=== PATIENT | female | born 1985 | race Hispanic/Latino ===

== ENCOUNTER 2017-06-19 18:36 | Inpatient (IN) | payer BC ==
[2017-06-19 19:25] LABS: BASO # 0.03 K/mm3 (0.0-2.0); BASO % 0.4 % (0.0-3.0); EOS # 0.1 (0.0-0.7); GRAN # 4.77 (1.4-6.5); GRAN % 67.3 % (50.0-68.0); HEMOGLOBIN 14.4 gm/dL (12.0-16.0); LYMPH # 1.7 (1.2-3.4); LYMPH % 24.2 % (22.0-35.0); MEAN CORPUSCULAR HEMOGLOBIN 32.6 pg (25.0-35.0); MEAN CORPUSCULAR HGB CONC 34.3 g/dl (31.0-37.0); MEAN PLATELET VOLUME 10.2 fl (7.0-11.0); MONO # 0.5 (0.1-0.6); MONO % 7.1 % (1.0-6.0); PLATELET COUNT 212 10^3/uL (120.0-450.0); RBC 4.42 10^6/uL (3.5-6.1); RED CELL DISTRIBUTION WIDTH 12.6 % (11.5-14.5); WHITE BLOOD COUNT 7.1 10^3/ul (4.5-11.0)
[2017-06-19] MEDS ORDERED: Oxycodone/Acetaminophen 5/325 mg Tab PO STA (19:25)
[2017-06-19 19:32] LABS: INR 1.04 (0.93-1.08); PARTIAL THROMBOPLASTIN TIME 25.1 Seconds (23.7-30.8); PROTHROMBIN TIME 11.2 Seconds (9.9-11.8)
[2017-06-19 19:33] LABS: ALB/GLOB RATIO 1.2 (1.1-1.8); ALBUMIN 4.6 g/dL (3.0-4.8); ALT/SGPT 38 U/L (7-56); AST/SGOT 38 U/L (15-39); BLOOD UREA NITROGEN 12 mg/dL (7-21); CALCIUM 9.6 mg/dL (8.4-10.5); GFR AFRICAN-AMERICAN > 60; GFR NON-AFRICAN AMERICAN > 60
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
[2017-06-19 20:24] VITALS: BMI 21.7
[2017-06-19] MEDS: Heparin 25,000units in D5W 25,000 UNITS/250 ML BAG IV PRN (20:38)
[2017-06-19] MEDS ORDERED: Pneumococcal 23-Valent Vaccine IM ONE (22:01)
[2017-06-20] MEDS ORDERED: Oxycodone/Acetaminophen 5/325 mg Tab PO STA (02:54)
[2017-06-20] MEDS ORDERED: Nitroglycerin 50mg in D5W 50 MG/250 ML BOTTLE IV ONE (11:48)
[2017-06-20] MEDS ORDERED: Iodixanol 320 MG/ML 100 ML BOTTLE IV ONE (11:48)
[2017-06-20] MEDS ORDERED: Lidocaine 2% Inj (20ml) ONE (11:48)
[2017-06-20] MEDS ORDERED: Iodixanol 320 MG/ML 200 ML BOTTLE IV ONE (11:48)
[2017-06-20] MEDS ORDERED: Midazolam 2 MG/2 ML VIAL ONE ×2 (12:13→13:12)
[2017-06-20] MEDS ORDERED: Iohexol 300 100 ML IJ ONE (12:30)
[2017-06-20] MEDS ORDERED: Heparin 25,000units in D5W 25,000 UNITS/250 ML BAG IV ONE (13:12)
[2017-06-20] MEDS: HYDROmorphone 2 mg/ml ISec IVP PRN ×2 (14:48→18:48)
--- NOTE | 2017-06-20 15:22 | HP ---
DATE: 06/20/2017 HISTORY OF PRESENT ILLNESS: This 31-year-old female was examined at her bedside. Her case was reviewed in detail with herself, her family, Dr. John Aldridge from Interventional Radiology and Dr. Caleb Wilson from Hematology/Oncology. This 31-year-old female presented to the [facility] last evening complaining of a left arm pain and swelling after returning from an airplane ride and vacation in [facility] . The patient states that the pain started on Friday. The arm became more swollen by and she presented to the ER for further evaluation of the above where venous Doppler ultrasound confirmed a deep venous thrombosis of her left axillary and subclavian veins. The patient was admitted for further evaluation of the above and started on IV heparin and consultations with Hematology and Intervention Radiology were placed. PAST MEDICAL HISTORY: Relatively unremarkable. MEDICATIONS: She states she takes no medication. ALLERGIES: NO KNOWN ALLERGIES TO MEDICATION. PAST SURGICAL HISTORY: She is status post appendectomy and childbirth. SOCIAL HISTORY: She is a social drinker. Occasional smoker. Denies any IV drug misuse and states she has had no DVTs in her past. On questioning her, there was a family history of diabetes, hypertension and atherosclerotic heart disease. REVIEW OF SYSTEMS: Head review, no headache or seizure. Eye review, no change in visual acuity. Ear review, no hearing loss. Throat review, no swallowing difficulty. Neck review, no stiffness. Cardiac review; no knowledge of hypertension. Pulmonary: No cough, no hemoptysis, no shortness of breath. GI: No hematemesis, no melena, no GERD. : No dysuria. Skin without rash. Neurological: No knowledge of TIA or stroke. Vascular: No claudication. Psychological: History of anxiety. PHYSICAL EXAMINATION VITAL SIGNS: Temperature 97.9, respirations 18, pulse 60, blood pressure 112/72 and pulse ox 99% on room air. playground monitor shows NSR. HEENT: Head is normocephalic, atraumatic. Eyes showed no icterus. Ears clear. Throat non-injected. NECK: Supple. HEART: Regular S1, S2. No pathological rubs, murmurs or gallops. LUNGS: Clear to auscultation. ABDOMEN: Soft and nontender. No palpable organomegaly. No rebound. No guarding. No tenderness. EXTREMITIES: No clubbing, cyanosis or edema of her legs. Her left upper arm showed swelling and there was an excellent brachial and radial pulse. There was normal capillary refill. NEURO; Motor strength, neurologically was 5/5 throughout. SENSORY: Intact. PSYCHOLOGICAL: Alert, oriented x3. VASCULAR: Legs warm to touch. LABORATORY DATA: White count 7100, hemoglobin 14.4, hematocrit 42.0, platelets 212,000. PTT 59.5, sodium 139, K 3.9, chloride 100, bicarbonate 31, BUN 12, creatinine 0.7. Random blood sugar 96. All liver function testing was normal including bilirubin 0.8, AST 38, ALT 38, alkaline phosphatase 51 and a venous Doppler of her left upper extremity revealed deep venous thrombosis involving her axillary and subclavian veins. IMPRESSION AND PLAN: A 31-year-old female with left upper extremity DVT, rule out mechanical, rule out hypercoagulable state; as discussed with Dr. John Aldridge, rule out thoracic outlet obstruction. The patient has been seen by Dr. Caleb Wilson who has outlined coagulopathy workup including lupus anticoagulant, factor V Leiden mutation levels, antiphospholipid antibody panel, protein C, protein S and antithrombin 3 levels. The patient remains on IV heparin protocol. She has been ordered to receive Tylenol for mild pain and Percocet for severe pain. She will have a stat urine test and if negative, we will proceed with a chest x-ray, a CT of her chest without and with contrast and Dr. Aldridge is scheduling a left upper extremity venogram with thrombolysis for later today as well. The patient will remain n.p.o. at present. She is ordered to have physical and occupational therapy. Based on her diagnostic testing and clinical response, Dr. Aldridge will be determining the timing of conversion of IV heparin to oral anticoagulation, which has been discussed with Dr. Wilson. Ultimate plan will be for stabilizing this patient with a therapeutic IV heparin. She will then follow up with Dr. Wilson in his office regarding the resulting of his coagulopathy workup and the patient will be ruled out for a thoracic outlet obstruction by Dr. Aldridge with his venogram studies as ordered. All this has been discussed in detail with the patient and her family at the bedside. Her prognosis remains stable at present. Yvonne Dee MD [facility] # [id number] MTDD
--- NOTE | 2017-06-20 16:22 | CARD ---
APPROVED REPORT EKG Measurement Heart [id number] <Conclusion> Normal sinus rhythm Normal ECG
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
--- NOTE | 2017-06-20 18:25 | PCM.SEPTIC ---
Sepsis Progress Note - Non Invasive Reassessment Vital Sign (Latest): Temp Pulse Resp BP Pulse Ox 98.3 F 56 L 22 122/64 99 06/20/17 16:15 06/20/17 17:36 06/20/17 17:36 06/20/17 17:36 06/20/17 09:00
--- NOTE | 2017-06-20 20:39 | VASCULAR ---
PROCEDURE: 1. Left upper extremity venogram 2. SVC gram 3. Catheter directed thrombolysis of the left subclavian and axillary veins HISTORY: Acute thrombosis left subclavian and axillary veins with pain and swelling. 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 TECHNIQUE: The relative risks and indications of the procedure were explained to the patient and consent obtained. The patient was hydrated prior to the procedure and the appropriate labs drawn. The patient was placed supine on the arteriogram table and the left arm prepped and draped in usual sterile fashion. A tourniquet was applied left axilla. Conscious sedation monitoring were provided throughout the procedure by a nurse. Under direct ultrasound guidance, the left basilic vein was punctured above the elbow with a micropuncture set. 5 Panamanian catheter was placed. A limited left upper extremity venogram was performed. This revealed thrombus in the left subclavian axillary veins. The 5 Panamanian catheter was advanced the 1st rib and additional imaging obtained. This revealed a severe focal stenosis of the left subclavian vein at the medial 1st rib, consistent with thoracic outlet compression. The left innominate vein and superior vena cava are widely patent and normal. Exchange is made for support wire. A 6 Panamanian sheath was placed at the puncture site. A 5 Panamanian EKOS catheter with a 12 cm infusion length was positioned in the left axillary and subclavian veins. TPA was initiated at 1 milligram/hour. The infusion system was secured and the patient transferred to the ICU. FINDINGS: Occlusive thrombus is noted in the left subclavian and axillary veins. There is a focal stenosis at the medial aspect of the left 1st rib, consistent with thoracic outlet compression. The left innominate vein and SVC are widely patent. IMPRESSION: 1.Left subclavian and axillary venous thrombosis likely related to thoracic outlet syndrome 2. Successful placement of a 12 cm EKOS infusion catheter for venous thrombolysis
[2017-06-21] MEDS: HYDROmorphone 2 mg/ml ISec IVP PRN ×4 (00:10→18:28)
[2017-06-21] MEDS: ceFAZolin 1 gm in NS 1 GM/100 ML BAG IVPB SCH (09:41)
[2017-06-21 10:01] LABS: HEMOGLOBIN 13.1 gm/dL (12.0-16.0)
--- NOTE | 2017-06-21 11:25 | PN ---
DATE: 06/21/2017 SUBJECTIVE: The patient is resting in bed, awake and alert, continues to complain of occasional pain in the left arm. The arm is swollen and she still has some paresthesia in her hand and fingers. No complaints of shortness of breath. No cough. No wheeze. No chest congestion. No chest pain. No abdominal pain. No diarrhea. The patient continues to get IV tPA as well as IV heparin and continues to have close monitoring. PHYSICAL EXAMINATION: Note that; VITAL SIGNS: Her temperature is 98.4, her pulse is 64, respirations are 20, blood pressure is 122/86 and O2 saturation on 2 liters with nasal cannula is 99%. HEENT: Head is atraumatic and normocephalic. Eyes reactive to light. Ear, nose and throat seem to be within normal limits. NECK: Supple. No JVD. No thyroid enlargement. No lymph nodes. HEART: Regular rate and rhythm. Normal S1, S2. LUNGS: Reveal good breath sounds bilaterally. ABDOMEN: Soft and nontender. Normal bowel sounds. No organomegaly noted. GENITALIA AND RECTAL: Deferred. MUSCULOSKELETAL: No joint deformities. EXTREMITIES: Reveal swelling and tenderness in the left arm up to the shoulder. The patient continues to have good pulses in the left arm. NEUROLOGICAL: She seems to be grossly intact. LABORATORY DATA: Her white count is 7.1, hemoglobin is 14.4, hematocrit is 42.0 with platelets of 212,000. The patient's last PTT is 25.4 and chemistries reveal a sodium is 139, potassium 3.9, chloride 100, CO2 of 31 with a BUN of 12, creatinine of 0.7, and a glucose of 96. IMPRESSION: The patient has a subclavian and axillary deep vein thrombosis and noted left upper extremity venous thrombosis. This is with thoracic outlet obstruction. Possible hypercoagulable state. PLAN: We will continue to monitor closely in the ICU. The patient is getting continuous IV tPA and IV heparin. We will continue to give Dilaudid for pain and the patient is on Cefazol IV as antibiotics and Ativan for anxiety. She will continue to get Protonix, and we will follow closely and treat aggressively along with the other consultants and the primary care doctor. Robert Starks MD
[2017-06-21] MEDS ORDERED: Lidocaine 2% Inj (20ml) ONE (11:26)
[2017-06-21] MEDS ORDERED: Midazolam 2 MG/2 ML VIAL ONE ×2 (11:27→12:16)
[2017-06-21] MEDS ORDERED: Iodixanol 320 MG/ML 100 ML BOTTLE IV ONE (11:27)
[2017-06-21] MEDS ORDERED: Nitroglycerin 50mg in D5W 50 MG/250 ML BOTTLE IV ONE (11:27)
[2017-06-21] MEDS ORDERED: Heparin 25,000units in D5W 25,000 UNITS/250 ML BAG IV ONE (12:20)
--- NOTE | 2017-06-21 18:51 | PN ---
CRITICAL CARE PROGRESS NOTE DATE: 06/21/2017 SUBJECTIVE: This 31-year-old female was examined at the bedside, in ICU bed 7 in the presence of her nurse. The patient has completed TPA therapy for left upper extremity, axillary and subclavian vein thrombosis with good result and was found to have a thoracic outlet obstruction as a cause of her left upper extremity DVT. She was seen earlier today by Dr. John Aldridge from Interventional Radiology who has stopped her alteplase infusion, has started her on IV heparin protocol and is ordering 0.45 saline at 75 mL per hour as well as Ancef 1 g IV q. 24 hours. The patient is being monitored and will need surgical referral by Dr. 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 Of note, her coagulopathy workup as outlined by Dr. Wilson remains pending and she has not yet completed her chest x-ray nor her CT of the lungs, which Dr. Aldridge has recommended to be done on Friday. Patient was on clear liquids now being advanced to regular diet. Patient was recently medicated with Dilaudid for pain control. PHYSICAL EXAMINATION: VITAL SIGNS: Shows manager monitoring with normal sinus rhythm, temperature 98.8, respirations 20, pulse 82, blood pressure 130/71 with a pulse ox of 99% on room air. HEENT: Head is normocephalic, atraumatic. Eyes, no icterus. Ears clear. Throat non-injected. NECK: Supple. HEART: Regular S1, S2. No pathological rubs, murmurs or gallops. LUNGS: Clear to auscultation. ABDOMEN: Soft, nontender. No palpable organomegaly. No rebound. No guarding. No tenderness. EXTREMITIES: Legs show no clubbing, no cyanosis, no edema. Left upper extremity has Tanmay bandage in place. She has excellent radial pulses bilaterally and good capillary refill of her fingers. NEUROLOGICAL: Grossly intact. PSYCHOLOGICAL: Alert and oriented x3. VASCULAR: Legs are warm to touch. LABORATORY DATA: Hemoglobin 13.1, hematocrit 39.2. PTT 25.4. Sodium 139, K 3.9, chloride 100, bicarbonate 31, BUN 12, creatinine 0.7, random blood sugar 96. All liver function testing was normal including bilirubin 0.8, AST 38, ALT 38, alkaline phosphatase 51. Urine was negative. IMPRESSION: A 31-year-old female with a newly noted left arm deep venous thrombosis involving her subclavian and axillary veins for which she underwent tissue plasminogen activator infusion with good results and balloon angioplasty of her venous stenosis secondary to thoracic outlet obstruction. PLAN: At present is to continue regular diet, 0.45 saline at 75 mL per hour, Ancef 1 g IV q. 24 hours, Dilaudid 2 mg IV q. 4 hours p.r.n. severe pain, IV heparin protocol, Protonix 40 mg IV daily. She is scheduled for chest x-ray, CT of the chest with and without IV contrast. Her diet has been advanced to regular. She is ordered to be out of bed to chair as able. She will have basic metabolic panel repeated in a.m. as well as hemoglobin and hematocrit. PTTs will be monitored on IV heparin, and as discussed with the patient and nurse at bedside, decision regarding anticoagulants for outpatient management will be decided by Dr. Wilson once patient stabilizes. All of this was discussed in detail with the patient who is in agreement with the above recommendations and patient will be monitored in the Critical Care Unit for the time being. Yvonne Dee MD ANA
[2017-06-21] MEDS: Sodium Chloride 0.45% 1,000 ML IV SCH (22:19)
[2017-06-22] MEDS: HYDROmorphone 2 mg/ml ISec IVP PRN ×3 (00:04→23:12)
[2017-06-22 06:26] LABS: BLOOD UREA NITROGEN 6 mg/dL (7-21); CALCIUM 8.7 mg/dL (8.4-10.5); GFR AFRICAN-AMERICAN > 60; GFR NON-AFRICAN AMERICAN > 60
[2017-06-22 06:27] LABS: HEMOGLOBIN 13.7 gm/dL (12.0-16.0); MEAN CELL VOLUME 93.9 fL (80.0-105.0); MEAN CORPUSCULAR HEMOGLOBIN 32.2 pg (25.0-35.0); MEAN CORPUSCULAR HGB CONC 34.3 g/dl (31.0-37.0); MEAN PLATELET VOLUME 10.2 fl (7.0-11.0); RBC 4.25 10^6/uL (3.5-6.1); RED CELL DISTRIBUTION WIDTH 12.3 % (11.5-14.5); WHITE BLOOD COUNT 6.7 10^3/ul (4.5-11.0)
[2017-06-22 06:32] LABS: INR 1.15 (0.93-1.08); PARTIAL THROMBOPLASTIN TIME 46.4 Seconds (23.7-30.8); PROTHROMBIN TIME 12.4 Seconds (9.9-11.8)
[2017-06-22] MEDS: Heparin 25,000units in D5W 25,000 UNITS/250 ML BAG IV PRN (07:50)
[2017-06-22] MEDS: ceFAZolin 1 gm in NS 1 GM/100 ML BAG IVPB SCH (10:03)
[2017-06-22] MEDS: Sodium Chloride 0.45% 1,000 ML IV SCH (10:10)
--- NOTE | 2017-06-22 10:26 | RAD ---
HISTORY: routine COMPARISON: No prior. TECHNIQUE: Chest PA and lateral FINDINGS: LUNGS: No active pulmonary disease. PLEURA: No significant pleural effusion identified. No pneumothorax apparent. CARDIOVASCULAR: Normal. OSSEOUS STRUCTURES: No significant abnormalities. VISUALIZED UPPER ABDOMEN: Normal. OTHER FINDINGS: None. IMPRESSION: No active disease.
--- NOTE | 2017-06-22 10:27 | PN ---
DATE: 06/22/2017 SUBJECTIVE: The patient is resting in bed, states that she is feeling better, but continues to have pain in the left arm and shoulder even though it is less than yesterday. The arm is wrapped and she states that she does not have any tingling or loss of feeling in the hand or the arm. She is able to move it, but because of the swelling, she cannot make a complete fist as of yet. No fever or chills. No chest pain or abdominal pain. The patient is on IV heparin and tPA has been discontinued. PHYSICAL EXAMINATION: VITAL SIGNS: Her temperature is 98, her pulse is 79, respirations are 14, BP is 130/74, O2 saturation is 95% on room air. HEENT: Head is atraumatic and normocephalic. Eyes reactive to light. Ear, nose and throat seem to be within normal limits. NECK: Supple. No JVD. No thyroid enlargement. No lymph nodes. HEART: Has a regular rate and rhythm. Normal S1, S2. LUNGS: Reveal good breath sounds bilaterally. ABDOMEN: Soft and nontender. Normal bowel sounds. No organomegaly noted. GENITALIA: Deferred. RECTAL: Deferred. MUSCULOSKELETAL: No joint deformities. EXTREMITIES: Reveal the swelling in the left arm and shoulder. NEUROLOGICAL: She seemed to be grossly intact. LABORATORY DATA: As far as her laboratories, the patient's white count is 6.7, hemoglobin is 13.7, hematocrit is 39.9 with platelets of 159,000. Sodium is 135, potassium is 3.7, chloride 100, CO2 of 27, BUN of 6, creatinine of 0.6, and a glucose of 93. IMPRESSION: The patient has subclavian and axillary deep venous thrombosis. This is with thoracic outlet obstruction. PLAN: We will continue to monitor closely in the ICU. The patient is on IV heparin and pain medications as well as antibiotics via IV. We will continue with Ativan and Protonix and we will follow closely and treat aggressively along with the other consultants and the primary care doctor. Robert Starks MD
[2017-06-22] MEDS: Oxycodone/Acetaminophen 2.5/325 mg Tab PO PRN ×2 (15:16→20:22)
--- NOTE | 2017-06-22 19:44 | PN ---
DATE: 06/22/2017 SUBJECTIVE: This 31-year-old female was examined in the ICU bed-7 at her bedside and her case was reviewed in details with her nurse Liam Rodriguez. The patient remains in a normal sinus rhythm on the monitor. She required parenteral Dilaudid for pain control earlier today. She is tolerating IV heparin protocol in the setting of left upper extremity subclavian axillary DVT for which she underwent TPA clot infusion with Dr. John Aldridge. The patient had a chest x-ray that showed no active disease and is currently scheduled for a CAT scan of her chest without and with IV contrast. The patient had coagulopathy studies sent which are pending and is waiting to be reevaluated by Dr. Caleb Wilson from hematology in the a.m. for him to decide which oral anticoagulant he prefers the patient to be started on in the above setting of thoracic outlet obstruction causing mechanical DVT of left upper extremity. PHYSICAL EXAMINATION GENERAL: At present, she is normal sinus rhythm on the cardiac monitor technician. Denying any chest pain, shortness of breath, fever or chills. VITAL SIGNS: Her temperature was 98, respirations 21, pulse 83, pulse oximetry 100% on room air with a blood pressure of 119/57. HEENT: Head is normocephalic, atraumatic. Eyes, no icterus. Ears clear. Throat noninjected. NECK: Supple. HEART: Regular S1 and S2. No pathological rubs, murmurs or gallops. LUNGS: Clear to auscultation. ABDOMEN: Soft. EXTREMITIES: Left upper extremity has an Tanmay bandage, slight swelling at her forearm area. VASCULAR: Legs are warm to touch. Excellent radial pulses bilaterally and normal capillary refill of left fingers. NEUROLOGICAL: Grossly intact. PSYCHOLOGICAL: Alert and oriented x3. LABORATORY DATA: White count 6700, hemoglobin 13.7, hematocrit 39.9, platelet 159,000. PTT 50.3. Sodium 135, potassium 3.7, chloride 100, bicarbonate 27, BUN 6, creatinine 0.6, random blood sugars 93. Urine negative. IMPRESSION AND PLAN: A 31-year-old female with a newly noted left upper extremity axillary and subclavian vein deep venous thrombosis in the setting of thoracic outlet obstruction which required tissue plasminogen activator dissolution of clot and balloon stretching of her stenotic axillary and subclavian veins. Now, with the patient in critical care unit being treated with IV 0.45 saline at 75 mL per hour, Ancef 1 g IV q. 24 hours, heparin protocol, Pepcid 20 mg p.o. b.i.d. and Dilaudid 2 mg IV q. 4 hours p.r.n. severe pain and Percocet 1 tablet p.o. q. 6 hours p.r.n. moderate pain and Tylenol 650 p.o. q. 4 hours p.r.n. mild pain. The patient will continue on regular diet. She was instructed on the movement of fingers and arm and to keep her left upper extremity elevated higher than her heart on her pillow. She is ordered to be out of bed to chair with bedside physical and occupational therapy scheduled and I have asked the nursing staff to discuss with Dr. Wilson, his choice of anticoagulation that he will be monitoring as an outpatient. All of this was discussed in detail with the patient and her nurse and the patient will remain in critical care for the present time. Yvonne Dee MD MTDReji
[2017-06-23] MEDS: Heparin 25,000units in D5W 25,000 UNITS/250 ML BAG IV PRN (04:41)
[2017-06-23 05:06] LABS: B2 GLYCOPROTEIN I AB(IGA) <9 SAU (<=20); B2 GLYCOPROTEIN I AB(IGG) <9 SGU (<=20); B2 GLYCOPROTEIN I AB(IGM) <9 SMU (<=20)
[2017-06-23 05:48] LABS: CARDIOLIPIN AB (IGA) <11 APL (<=11); CARDIOLIPIN AB (IGG) <14 GPL (<=14); CARDIOLIPIN AB (IGM) <12 MPL (<=12); PHOSPHATIDYLSERINE AB IGA <20 U/mL (<20); PHOSPHATIDYLSERINE AB IGG <10 U/mL (<10); PHOSPHATIDYLSERINE AB IGM <25 U/mL (<25)
[2017-06-23 07:03] LABS: HEMOGLOBIN 13.3 gm/dL (12.0-16.0); MEAN CELL VOLUME 94.1 fL (80.0-105.0); MEAN CORPUSCULAR HEMOGLOBIN 31.6 pg (25.0-35.0); MEAN CORPUSCULAR HGB CONC 33.6 g/dl (31.0-37.0); RBC 4.21 10^6/uL (3.5-6.1); RED CELL DISTRIBUTION WIDTH 12.5 % (11.5-14.5); WHITE BLOOD COUNT 4.3 10^3/ul (4.5-11.0)
[2017-06-23 07:12] LABS: INR 1.11 (0.93-1.08); PARTIAL THROMBOPLASTIN TIME 60.6 Seconds (23.7-30.8)
[2017-06-23] MEDS: HYDROmorphone 2 mg/ml ISec IVP PRN ×3 (08:15→21:47)
[2017-06-23] MEDS ORDERED: Iohexol 350 MG/100 ML VIAL ONE (08:33)
--- NOTE | 2017-06-23 09:41 | CP.PCM.PN ---
<Mark Bardales - Last Filed: 06/23/17 11:49> Subjective - Date & Time of Evaluation Date of Evaluation: 06/23/17 Time of Evaluation: 09:35 - Subjective Subjective: Patient seen and examined at bedside. States LUE pain is fairly well controlled. She is eating and ambulating fine. Denies chest pain, SOB, or focal weakness. Objective - Vital Signs/Intake and Output Vital Signs (last 24 hours): Temp Pulse Resp BP Pulse Ox 97.9 F 48 L 36 H 103/71 98 06/23/17 04:54 06/23/17 04:40 06/23/17 04:40 06/23/17 04:00 06/23/17 04:40 Intake and Output: 06/23/17 06/23/17 06:59 18:59 Intake Total 1810 Output Total 1151 Balance 659 - Medications Medications: Current Medications Acetaminophen (Tylenol 325mg Tab) 650 mg PO Q6H PRN PRN Reason: pain or fever Acetaminophen (Tylenol 325mg Tab) 650 mg PO Q4H PRN PRN Reason: Pain, Mild (1-3) Apixaban (Eliquis) 5 mg PO BID TRISHA PRN Reason: Protocol Famotidine (Pepcid) 20 mg PO 1000,2200 TRISHA Last Admin: 06/22/17 22:06 Dose: 20 mg Hydromorphone HCl (Dilaudid) 2 mg IVP Q4H PRN PRN Reason: Pain, severe (8-10) Last Admin: 06/22/17 23:12 Dose: 2 mg Heparin Sodium/Dextrose (Heparin 25,000 Units/250ml In D5w) 25,000 units in 250 mls @ 10.41 mls/hr IV .Q24H PRN; Protocol; 18 UNITS/KG/HR PRN Reason: ADJUST RATE PER PROTOCOL Stop: 06/23/17 14:00 Last Admin: 06/23/17 04:41 Dose: 20 units/kg/hr, 11.567 mls/hr Cefazolin Sodium (Ancef 1gm In Ns) 1 gm in 100 mls @ 100 mls/hr IVPB DAILY TRISHA PRN Reason: Protocol Last Admin: 06/22/17 10:03 Dose: 100 mls/hr Sodium Chloride (Sodium Chloride 0.45%) 1,000 mls @ 75 mls/hr IV .[id number] [facility] Last Admin: 06/22/17 10:10 Dose: 75 mls/hr Lorazepam (Ativan) 2 mg IVP Q8H PRN PRN Reason: Anxiety Ondansetron HCl (Zofran Inj) 4 mg IVP Q8H PRN PRN Reason: Nausea/Vomiting Oxycodone/Acetaminophen (Percocet 2.5/325 Mg Tab) 1 tab PO Q6H PRN PRN Reason: severe pain Last Admin: 06/22/17 20:22 Dose: 1 tab - Labs Labs: 06/23/17 05:35 06/22/17 05:30 PT 12.0 Seconds (9.9-11.8) H 06/23/17 05:35 INR 1.11 (0.93-1.08) H 06/23/17 05:35 APTT 60.6 Seconds (23.7-30.8) H 06/23/17 05:35 - Constitutional Appears: Well, No Acute Distress - Head Exam Head Exam: ATRAUMATIC, NORMOCEPHALIC - Eye Exam Eye Exam: EOMI, Normal appearance, PERRL. absent: Scleral icterus - ENT Exam ENT Exam: Mucous Membranes Moist - Neck Exam Neck Exam: Normal Inspection. absent: Tenderness - Respiratory Exam Respiratory Exam: Clear to Ausculation Bilateral, NORMAL BREATHING PATTERN. absent: Rales, Rhonchi, Wheezes - Cardiovascular Exam Cardiovascular Exam: RRR. absent: Clicks, Murmur - Extremities Exam Extremities Exam: Normal Inspection. absent: Pedal Edema Additional comments: ELMER is wrapped, a bit more swollen - Neurological Exam Neurological Exam: CN II-XII Intact, Normal Gait, Oriented x3 Additional comments: Unable to accurately assess strength of bilateral UEs - Skin Skin Exam: Intact, Normal Color Assessment and Plan - Assessment and Plan (Free Text) Assessment: 31 yo female admitted to the ICU s/p thrombolysis of LUE DVT via EKOS, systemic heparin, localized tPA. Ms. Hennessy stay in the ICU was uneventful. Plan: Neuro -AAO, stable. CV: Hemodynamically stable. MAP > 65. EKOS with systemic heparin and local tPA for left axillary and subclavian vein thrombosis. CT of chest with and without contrast to evaluate for obstroction. IR following, Dr. Aldridge. Pulmonary: Stable, RR regular. GI: Patient advanced to normal diet. Renal - replace lytes, maintain euvolemia. ID - afebrile without leukocytosis Heme : No leukocytosis, PTT being followed. Work- up for hypercoagulabilty. protein c,s, antithrombin 3 deficiency, factor 5 leiden, lupus anticoagulant pending. Dr. Wilson following Psychiatric: appropriate mood and affect. PLAN: Discussed with patient that she should avoid getting while taking Eliquis, if she chooses to remain on Eliquis for anticoagulation. <Greg Gallegos - Last Filed: 06/23/17 18:01> Objective - Vital Signs/Intake and Output Vital Signs (last 24 hours): Temp Pulse Resp BP Pulse Ox 98.5 F 58 L 20 109/71 95 06/23/17 16:30 06/23/17 16:30 06/23/17 16:30 06/23/17 16:30 06/23/17 16:30 Intake and Output: 06/23/17 06/23/17 06:59 18:59 Intake Total 1810 Output Total 1151 1999 Balance 659 -2000 - Medications Medications: Current Medications Acetaminophen (Tylenol 325mg Tab) 650 mg PO Q6H PRN PRN Reason: pain or fever Acetaminophen (Tylenol 325mg Tab) 650 mg PO Q4H PRN PRN Reason: Pain, Mild (1-3) Apixaban (Eliquis) 5 mg PO BID TRISHA PRN Reason: Protocol Last Admin: 06/23/17 10:39 Dose: 5 mg Hydromorphone HCl (Dilaudid) 2 mg IVP Q4H PRN PRN Reason: Pain, severe (8-10) Last Admin: 06/23/17 13:54 Dose: 2 mg Cefazolin Sodium (Ancef 1gm In Ns) 1 gm in 100 mls @ 100 mls/hr IVPB DAILY TRISHA PRN Reason: Protocol Last Admin: 06/23/17 10:39 Dose: 100 mls/hr Sodium Chloride (Sodium Chloride 0.45%) 1,000 mls @ 75 mls/hr IV .[id number] TRISHA Last Admin: 06/22/17 10:10 Dose: 75 mls/hr Lorazepam (Ativan) 2 mg IVP Q8H PRN PRN Reason: Anxiety Ondansetron HCl (Zofran Inj) 4 mg IVP Q8H PRN PRN Reason: Nausea/Vomiting Oxycodone/Acetaminophen (Percocet 2.5/325 Mg Tab) 1 tab PO Q6H PRN PRN Reason: severe pain Last Admin: 06/22/17 20:22 Dose: 1 tab - Labs Labs: 06/23/17 05:35 06/23/17 05:35 PT 12.0 Seconds (9.9-11.8) H 06/23/17 05:35 INR 1.11 (0.93-1.08) H 06/23/17 05:35 APTT 60.6 Seconds (23.7-30.8) H 06/23/17 05:35 Attending/Attestation - Attestation I have personally seen and examined this patient.: Yes I have fully participated in the care of the patient.: Yes I have reviewed all pertinent clinical information, including history, physical exam and plan: Yes Notes (Text): 06/23/17 18:00 31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 Substantially improved. Hemodynamically and respiratory shafer stable. Ok to downgrade to [facility] ccm time 40 min
[2017-06-23 09:45] LABS: BLOOD UREA NITROGEN 5 mg/dL (7-21); CALCIUM 8.7 mg/dL (8.4-10.5); GFR AFRICAN-AMERICAN > 60; GFR NON-AFRICAN AMERICAN > 60
--- NOTE | 2017-06-23 10:10 | CT ---
PROCEDURE: CT Chest with and without contrast HISTORY: s/p thrombolysis COMPARISON: None. TECHNIQUE: Contiguous axial images were obtained through the chest with intravenous contrast enhancement. Sagittal and coronal reconstructions were performed. IV contrast: 100 cc of Omni 350 Radiation dose (DLP): 575 mGy-cm. This CT exam was performed using one or more of the following dose reduction techniques: Automated exposure control, adjustment of the mA and/or kV according to patient size, and/or use of iterative reconstruction technique. FINDINGS: LUNGS: Clear lungs. Visualized airway clear. MEDIASTINUM: Unremarkable thoracic aorta. No aneurysm or dissection. Normal sized heart. Main pulmonary artery unremarkable. No vascular congestion. No lymphadenopathy. PLEURA: No pleural fluid. No pneumothorax. BONES: No fracture. No destructive lesion. UPPER ABDOMEN: Grossly unremarkable. OTHER FINDINGS: None. IMPRESSION: Negative study
[2017-06-23] MEDS: ceFAZolin 1 gm in NS 1 GM/100 ML BAG IVPB SCH (10:39)
--- NOTE | 2017-06-23 15:35 | PN ---
DATE: 06/23/2017 SUBJECTIVE: This is a 31-year-old female was examined in ICU bed 7. Her case was reviewed in detail with herself, her nurse, Dr. John Aldridge, Dr. Caleb Wilson and her mother. The patient is status post identification of a left axillary subclavian DVT that was treated with TPA infusion of the clot and IV heparin is infusing and the patient has been ordered to receive Eliquis 5 mg p.o. b.i.d. by Dr. John Aldridge and approved by Dr. Caleb Wilson from hematology. On questioning the patient, she denies any fever, chills, chest pain, shortness of breath, hemoptysis, GI distress or melena and is ambulating and out of bed to chair and with improved range of motion of her left upper extremity. PHYSICAL EXAMINATION: VITAL SIGNS: She is in a normal sinus rhythm on the monitoring manager, temperature 97.9, respirations 16, pulse 71 and blood pressure 103/71 with the pulse ox of 98% of room air. HEENT: Head is normocephalic, atraumatic. Eyes, no icterus. Ears are clear. Throat; non-injected. NECK: Supple. HEART: Regular. S1, S2. LUNGS: Clear. ABDOMEN: Soft. EXTREMITIES: No edema. SKIN: Without rash. NEUROLOGIC: Intact. PSYCHOLOGIC: Alert, and oriented x3. VASCULAR; Legs are warm to touch. She has an excellent radial pulse. She has improved range of motion in her left upper extremity. She has decreased swelling of the left upper extremity and forearm and has good capillary refill of her fingers. LABORATORY DATA: White count is 4300, hemoglobin 13.3, hematocrit 39.6, platelets 155,000. PTT 60.6, sodium 138, K 3.6, chloride 103, bicarbonate 27, BUN 5, creatinine 0.6. Random blood sugar is 88. All of her function testing was normal including bilirubin 0.8. AST 38, and ALT 38. Alkaline phosphatase 51. Urine is negative. IMPRESSION: A 31-year-old female with a left upper extremity axillary subclavian deep venous thrombosis in the setting of a thoracic outlet obstruction. PLAN: At present is to continue IV fluids of 0.45 saline at 75 mL per hour. She is ordered to receive Eliquis 5 mg b.i.d. Heparin will be stopped 4 hours post Eliquis dosing. She is receiving Tylenol for mild pain, Percocet for moderate pain. She is instructed on range of motion and elevation of her left upper extremity to improve edema and range of motion of her arm. The patient is being readied for discharge. Dr. John Aldridge is in the process of obtaining a referral for a thoracic surgeon either at [facility] or [place] regarding evaluation for transaxillary left cervical rib resection and the patient will be monitored as an outpatient by Dr. Caleb Wilson regarding management of her Eliquis, blood thinner, dosing, duration and perioperative management. All of the above has been reviewed with him, the patient, her family and nursing staff in detail today. Yvonne Dee MD cc: MTDD
[2017-06-24 07:43] LABS: MEAN CELL VOLUME 93.3 fL (80.0-105.0); MEAN CORPUSCULAR HEMOGLOBIN 32.3 pg (25.0-35.0); MEAN CORPUSCULAR HGB CONC 34.6 g/dl (31.0-37.0); MEAN PLATELET VOLUME 10.1 fl (7.0-11.0); RBC 4.34 10^6/uL (3.5-6.1); RED CELL DISTRIBUTION WIDTH 12.4 % (11.5-14.5); WHITE BLOOD COUNT 4.1 10^3/ul (4.5-11.0)
[2017-06-24 07:52] LABS: INR 1.1 (0.93-1.08); PARTIAL THROMBOPLASTIN TIME 27.8 Seconds (23.7-30.8); PROTHROMBIN TIME 11.9 Seconds (9.9-11.8)
[2017-06-24 07:53] LABS: BLOOD UREA NITROGEN 7 mg/dL (7-21); CALCIUM 9.1 mg/dL (8.4-10.5); GFR AFRICAN-AMERICAN > 60; GFR NON-AFRICAN AMERICAN > 60
[2017-06-24] MEDS: Oxycodone/Acetaminophen 2.5/325 mg Tab PO PRN (08:28)
[2017-06-24 08:51] VITALS: BP 99/60; PULSE 52; RESP 16; TEMP 98.4; O2SAT 99
--- NOTE | 2017-06-24 14:11 | VASCULAR ---
PROCEDURE: 1. Follow-up left upper extremity venogram. 2. Left subclavian vein venous angioplasty HISTORY: Left subclavian/axillary venous thrombosis related to thoracic outlet obstruction. Catheter- directed tPA infusion for 24 hours. PHYSICIAN(S): John Aldridge M.D. TECHNIQUE: The relative risks and indications of the procedure were explained to the patient and consent obtained. The patient was hydrated prior to the procedure and the appropriate labs drawn. The patient was placed supine on the arteriogram table and the left arm infusion system prepped and draped in the usual sterile fashion. Conscious sedation and monitoring were provided throughout the procedure by a nurse. The close catheter was removed over a guidewire. A left upper extremity venogram was performed through the sheath. This revealed complete lysis of the previously noted thrombus. There is a web-like occlusion of the left subclavian vein at the medial aspect of the 1st rib. Exchange is made for a 7 [place] sheath. The left subclavian vein was dilated with a 12 mm x 4 cm balloon. A much improved angiographic result was obtained. Brisk antegrade flow was noted. No stent was placed. FINDINGS: Complete lysis of the left subclavian/axillary thrombus is seen. Collaterals are present the thoracic outlet. The focal left subclavian vein stenosis was successfully dilated with a 12 mm balloon. IMPRESSION: 1.Complete lysis of the patient's left subclavian/ axillary thrombus. 2. Focal stenosis of the left subclavian vein at the medial aspect of the 1st rib, consistent with thoracic outlet obstruction. 3. Successful dilatation of the left subclavian vein stenosis with a 12 mm balloon
--- NOTE | 2017-06-25 10:18 | DS ---
FINAL DIAGNOSES: Left arm deep venous thrombosis of the axillary and subclavian vein, status post tissue plasminogen activator infusion and dissolution of clot in the left axillary and subclavian vein,and thoracic outlet obstruction syndrome. DISPOSITION: Home. FOLLOWUP: With Dr. Caleb Wilson with in one week. Followup with Dr. Valdivia at [facility] thoracic surgery with in one week. DISCHARGE DIET: Regular bland. DISCHARGE MEDICATIONS: Eliquis 5 mg p.o. b.i.d. number 20, no refills, further prescriptions from Dr. Wilson as well as Ultracet one p.o. b.i.d. p.r.n. severe pain number 10, no refills, Tylenol 650 mg p.o. q 6 hours. p.r.n. pain. SUMMARY: This is a 31-year-old female who was admitted to [facility] with a left upper extremity deep venous thrombosis, confirmed on ultrasound to involve both her axillary and subclavian veins, which on further workup was to be secondary to thoracic outlet obstruction. The patient was seen in consultation by Dr. John Aldridge, from interventional radiology who infused TPA into the clot and confirmed thoracic outlet syndrome and made a recommendation for the patient to follow up with Dr. Valdivia, thoracic surgeon at [facility]. Also the patient was seen and consultation by Dr. Caleb Wilson from Hematology/Oncology who at the time of this dictation is awaiting coagulation workup to rule out underlying DVT on the basis of a hypercoagulable syndrome. PHYSICAL EXAMINATION: VITAL SIGNS: The patient at present is with temperature of 98.4, respirations of 16, pulse of 58, and blood pressure of 109/71 with the pulse oximetry of 95% on room air. EXTREMITIES: Her left upper extremity is markedly less swollen. She has full range of motion. NEUROLOGIC: Excellent motor strength and radial pulses. LABORATORY DATA: At the time of discharge, her white count is 4100, hemoglobin is 14, hematocrit is 40.5, and platelets are 166,000. Sodium is 139, potassium is 3.8, chloride is 102, bicarbonate is 29, BUN is 7,and creatinine is 0.6. Random blood sugar is 87. All of her function testing was normal including bilirubin of 0.8, AST of 38, ALT of 38, and alkaline phosphatase of 51. Urine was negative. HOSPITAL COURSE: CT of the chest was unremarkable. Chest x-ray with no active pulmonary disease and the patient is cleared for discharge to home with followup with Dr. Wilson in his office within one week for further management of her anticoagulation with Eliquis and laboratory monitoring of her chemistry and hemoglobin and hematocrit in this office. He will review the results of her coagulation workup with the patient. I have also discussed with the patient not to mix her Eliquis was any non-steroidal anti-inflammatory agents nor aspirin products and she has been advised to follow up with closest emergency room for any bleeding diathesis that could occur. The patient is aware and in agreement with the above and hopefully will be compliant with the recommendations for follow with Dr. Wilson and Dr. Valdivia as outlined. Yvonne Dee MD MTDReji
== END 2017-06-24 14:50 | disposition home or self-care (01) | DRG 300 ==
LOC: ED 18:36 → ERH 20:42 → 2RNO 22:04 → CCU 06-20 14:34 → 5RNO 06-23 14:19
PROVIDERS: ADMIT Internal Medicine; ATTEND Internal Medicine
DX: I82.A12 Acute embolism and thrombosis of left axillary vein (principal); I87.1 Compression of vein; D68.59 Other primary thrombophilia; I82.B12 Acute embolism and thrombosis of left subclavian vein; F41.9 Anxiety disorder, unspecified; G54.0 Brachial plexus disorders; Q76.5 Cervical rib; A60.00 Herpesviral infection of urogenital system, unspecified; E78.5 Hyperlipidemia, unspecified; F17.200 Nicotine dependence, unspecified, uncomplicated; R40.2412 Glasgow coma scale score 13-15, at arrival to emergency department; Z82.49 Family history of ischemic heart disease and other diseases of the circulatory system; Z83.3 Family history of diabetes mellitus; Z90.49 Acquired absence of other specified parts of digestive tract